=== PATIENT | male | born 1965 | race Caucasian/White ===

== ENCOUNTER 2023-11-08 13:23 | Emergency (ER) | payer OTHER, SELFPAY ==
[2023-11-08 13:28] VITALS: BP 176/100; PULSE 67; O2SAT 100
[2023-11-08] MEDS: Lidocaine/Epinephri/Tetracaine Topical Gel 3 ML (13:40)
--- NOTE | 2023-11-08 13:55 | DI.CT_ITS ---
Exam(s) CT HEAD FACIAL WO EXAM: CT HEAD FACIAL WO CLINICAL HISTORY: fell ,hit nose, r/o fx and bleed. TECHNIQUE: Imaging Protocol: Axial computed tomography images with coronal and sagittal reformatted images were created and reviewed COMPARISON: No exams were available for comparison FINDINGS: CT Head: Ventricles and Extra axial spaces: Normal in size and morphology for the patient's age. Hemorrhage: None. Cerebral parenchyma: Normal. Midline shift: None. Brainstem/Cerebellum: Normal. Calvarium: Normal. Visualized Paranasal sinuses/Mastoids: Mild mucosal thickening of the maxillary sinuses. Minimal muc ous retention in anterior ethmoid air cells. Soft Tissues: Swelling around the nose. Nasal fractures. CT Face: Facial Bones: Bilateral minimally displaced nasal fractures. Sinuses and Mastoids: Mild mucosal thickening of the maxillary sinuses. Mild mucous retention in th e anterior ethmoid air cells. Globes, extraocular muscles, optic nerves and retrobulbar fat: Normal. Upper aerodigestive tract: Normal. Dental: On multiple absent teeth. Lucencies seen around an posterior upper maxillary teeth which marco antonio ear fractured. Bilateral temporomandibular joints: Normal. Soft tissues: Soft tissue swelling around the nose. IMPRESSION: 1. No acute intracranial process. 2. Minimally displaced bilateral nasal fractures. RADIATION DOSE DELIVERED: 1,104.05mGy.cm Total DLP DATA REPOSITORY: All CT scans at this facility are submitted to the National Radiology Data Registry (NRDR) Dose Index Registry (DIR) with the [employer] (ACR). RADIATION OPTIMIZATION: All CT scans at this facility use at least one of these dose optimization te chniques: automated exposure control; mA and/or kV adjustment per patient size (includes targeted exa ms where dose is matched to clinical indication); or iterative reconstruction.
--- NOTE | 2023-11-08 14:14 | ED.GENADUL_ITS ---
Discharge Plan Disposition Patient Disposition: Home Condition: Good Discharge Details Clinical Impression: Fracture of nasal bone, Fall Primary Care Provider: Lito Hernández ED Provider: John Florentino Home Meds and New Rx's Prescriptions: New cephalexin 500 mg capsule 500 mg PO QID 3 Days Qty: 12 0RF Discharge Instructions Instructions: Nasal Fracture (ED) Additional Instructions: At this time you do have a small fracture of your nasal bone, your laceration was sutured. Due to the nature of your fracture we will do a very short course of antibiotics for prevention of bone infection. Please keep the area clean and dry. Monitor closely for any redness, drainage or discharge. Absorbable sutures will come out on their own in 10 to 12 days. If they have not you can gently rub warm soapy water on the area to help them come off. For long-term scar cosmesis, please make sure to avoid any sun to the area for the next year. Apply moisturizer or vitamin E to the area twice daily for the next 12 months for the best chance of wound/scar medication. Please take a daily multivitamin as well as this can help in wound healing. If you notice any worsening of your symptoms, or any new symptoms such as vomiting, diarrhea, fever, chills, shortness of breath, chest pain, numbness, weakness, or fainting , please return immediately to the emergency department for reevaluation. Please follow up with your primary care provider as soon as possible for reassessment and reevaluation. As always, it was a pleasure participating in your medical care today. Referrals: Lito Hernández MD [Primary Care Provider] - [facility] General Date/Time Provider Initiated Documentation: 11/08/23 13:26 . [facility] Narrative: 58-year-old male whose tetanus is up-to-date with no significant past medical history otherwise presents today after a fall. Patient was at work when he tripped on the steps, and fell forward hitting his safety glasses on the ground which pushed up against his nose and caused a cut. He otherwise did not hit his head, he lost no consciousness. He has no pain in his nose currently. He denies vision changes numbness tingling or weakness. He denies any neck pain or chest pain or shortness of breath. He thinks that there was potentially some mild blood that came from the inside of his nose initially. No other complaints at this time. No other modifying factors. Related Data Home Medications Medication Instructions Recorded Confirmed cephalexin 500 mg capsule 500 mg PO QID 3 days #12 caps 11/08/23 Previous Rx's Medication Instructions Recorded cephalexin 500 mg capsule 500 mg PO QID 3 days #12 caps 11/08/23 General Stated Complaint: Laceration OSMIN: 4 Review of Systems All systems reviewed & are unremarkable except as noted in HPI and below Exam Narrative Exam Narrative: 1.Const: Well-nourished, Well-developed, appearing stated age 2.Eyes: PERRL, no conjunctival injection, and symmetrical lids. 3.ENT: There is no evidence of raccoon eyes, giles sign, CSF rhinorrhea, mastoid tenderness, cranial crepitus, hemotympanum, exophthalmos, or hyphema. Patient demonstrates intact dentition with no signs of tooth avulsion or fracture, no signs of jaw deformity, no evidence of a LeFort's fracture, with an intact palate, nose and orbital region. There is no evidence of a nasal septal hematoma. No proptosis. Jaw closes symmetrically. Airway is clear. Patient's nose demonstrates evidence of small excoriation and L-shaped laceration over the proximal bridge. No active bleeding at this time. No active bleeding internally. 4.CVS: +S1/S2, No murmurs or gallops. Peripheral pulses 2+ and equal in all extremities. Brisk capillary refill in all extremities. 5.RESP: Unlabored respiratory effort. Clear to auscultation bilaterally. No wheezes rales or rhonchi 6.GI: Soft, Nontender/Nondistended, No hepatosplenomegaly. No guarding or rebound. 7.MSK: Normocephalic/Atraumatic, Extremities w/o deformity or ttp No cyanosis or clubbing, Normal movement of all extremities 8.Skin: Warm, Dry. No rashes or lesions. 9.Neuro: freedom of information officer II-XII grossly intact. Sensation grossly intact, no focal neurologic deficits. 10.Psych: (AAO) x3. Appropriate mood and affect Course Vital Signs Vital signs: Vital Signs Pulse 67 11/08/23 13:28 Blood Pressure 176/100 H 11/08/23 13:28 Pulse Oximetry 100 11/08/23 13:28 Temperature Source Tympanic 11/08/23 13:28 Pulse 67 11/08/23 13:28 Respiratory Effort Normal 11/08/23 13:31 Blood Pressure 176/100 H 11/08/23 13:28 Blood Pressure Position Sitting 11/08/23 13:28 Pulse Oximetry 100 11/08/23 13:28 Oxygen Delivery Method Room Air 11/08/23 13:28 Oxygen Flow Rate 0 11/08/23 13:28 Pain Level 2 11/08/23 13:28 Procedures Laceration Laceration 1: Site: face Size (cm): 1 Description: linear Depth: simple, single layer Local Anesthetic: Lidocaine 1% and with Epi Amount of anesthesia used (mL): 2 Pre-repair: wound explored, irrigated extensively and deep structures intact Skin layer closed with: other (Chromic Gut) Size (cm): 5-0 Number of sutures: 2 Technique: simple, interrupted Medical Decision Making 58-year-old male whose tetanus is up-to-date with no significant past medical history otherwise presents today after a fall. Patient was at work when he tripped on the steps, and fell forward hitting his safety glasses on the ground which pushed up against his nose and caused a cut. He otherwise did not hit his head, he lost no consciousness. He has no pain in his nose currently. He denies vision changes numbness tingling or weakness. He denies any neck pain or chest pain or shortness of breath. He thinks that there was potentially some mild blood that came from the inside of his nose initially. No other complaints at this time. No other modifying factors. Exam demonstrates well-appearing male, small abrasion/laceration over the bridge of the nose, no active bleeding, no nasal septal hematoma or other abnormality. Due to patient's age and mechanism, will get CT imaging to rule out fracture or bleed in the brain. Will monitor closely, apply let, suture the nose and reassess. 2:[address] scan shows evidence of a minimally displaced bilateral nasal fracture, no other acute process. No other acute intracranial process per radiology. The area was sutured with 2 simple interrupted sutures utilizing chromic gut 5-0. Patient tolerated this well. Area was cleaned. We will give 4 days of antibiotic for ostial infection coverage. Recommend Tylenol as needed for pain. Discussed red flags for which to return. I have extensively reviewed the treatment plan and discharge instructions with the patient and their family. I have addressed all patient concerns at this time. The patient and family was made aware of what symptoms to monitor for that would warrant a return to the emergency department. Discussed the plan with the patient and family, they demonstrate verbal understanding and agreement with our assessment and plan at this time. The documentation in this chart was dictated using [employer] dictation software. Please excuse any dictation errors. FINDINGS: CT Head: Ventricles and Extra axial spaces: Normal in size and morphology for the patient's age. Hemorrhage: None. Cerebral parenchyma: Normal. Midline shift: None. Brainstem/Cerebellum: Normal. Calvarium: Normal. Visualized Paranasal sinuses/Mastoids: Mild mucosal thickening of the maxillary sinuses. Minimal mucous retention in anterior ethmoid air cells. Soft Tissues: Swelling around the nose. Nasal fractures. CT Face: Facial Bones: Bilateral minimally displaced nasal fractures. Sinuses and Mastoids: Mild mucosal thickening of the maxillary sinuses. Mild mucous retention in the anterior ethmoid air cells. Globes, extraocular muscles, optic nerves and retrobulbar fat: Normal. Upper aerodigestive tract: Normal. Dental: On multiple absent teeth. Lucencies seen around an posterior upper maxillary teeth which appear fractured. Bilateral temporomandibular joints: Normal. Soft tissues: Soft tissue swelling around the nose. IMPRESSION: 1. No acute intracranial process. 2. Minimally displaced bilateral nasal fractures. Quality:SDOH Health Related Social Needs: No Data to Display PFSH All Active Problems (Updated 11/08/23 @ 14:30 by John Florentino DO) Fall (Acute) Fracture of nasal bone (Acute) Social History Smoking/Tobacco Use Status: Never Smoking risk assessment performed?: Yes Alcohol Intake: current Alcohol Intake frequency: holidays/special occasions only Drug use: Never Substance use type: does not use Housing: house
[2023-11-08] MEDS: Cephalexin 500 MG CAP, 4 CAPS/BTL PO (14:36)
== END 2023-11-08 14:48 | disposition home or self-care (01) ==
PROVIDERS: Emergency Provider Student in an Organized Health Care Education/Training Program; PCP Family Medicine
DX: S01.21XA Laceration without foreign body of nose, initial encounter (principal); S02.2XXA Fracture of nasal bones, initial encounter for closed fracture; W01.0XXA Fall on same level from slipping, tripping and stumbling without subsequent striking against object, initial encounter; Y93.01 Activity, walking, marching and hiking; Y92.89 Other specified places as the place of occurrence of the external cause; Y99.0 Civilian activity done for income or pay
CPT/HCPCS: 12011; 99284; 70450; 70486

== ENCOUNTER 2024-01-05 02:54 | Outpatient (CLI) | payer OTHER, SELFPAY ==
[2024-01-05 08:57] LABS: Calculated LDL 145 mg/dL (<100); Cholesterol 214 mg/dL (<200); Glucose 107 mg/dL (74-106); HDL Cholesterol 58 mg/dL (40-60); Triglyceride 55 mg/dL (<150)
[2024-01-05 20:37] LABS: PSA, Screening 0.9 ng/mL (<=3.5)
[2024-01-05 21:25] LABS: HIV-1/2 Ag & Ab Screen Negative (Negative)
== END 2024-01-05 02:55 | disposition home or self-care (01) ==
LOC: LBO 02:54
PROVIDERS: PCP Family Medicine; Visit Provider Family Medicine
DX: E78.5 Hyperlipidemia, unspecified (principal); Z12.5 Encounter for screening for malignant neoplasm of prostate; R73.9 Hyperglycemia, unspecified; Z00.00 Encounter for general adult medical examination without abnormal findings
CPT/HCPCS: 36415; 80061; 82947; 84153; 87389

== ENCOUNTER 2025-06-02 08:38 | Day surgery (SDC) | payer MEDICAID, SELFPAY ==
[2025-06-02 08:52] VITALS: BP 143/83; PULSE 58; RESP 16; TEMP 36.2; O2SAT 100
[2025-06-02] MEDS: Lactated Ringers 1,000 ML 80 ML IV (09:03)
--- NOTE | 2025-06-02 09:22 | ANES.PREOP_ITS ---
General Info Date of Service Date Performed: 06/02/25 Height: 5 ft 10.5 in Weight: 75.9 kg Body Mass Index (BMI): 23.6 Surgical Procedure: Operation Date: 06/02/25 09:35 Proposed Procedure Side Surgeon p Colonoscopy Tammy Leung MD Meds Allergies and Home Medications Allergies Allergy/AdvReac Type Severity Reaction Status Date / Time venom-honey bee Allergy Intermediate Swelling/Ed Verified 06/02/25 08:55 gideon Home Medication Medication Instructions Recorded bisacodyl 5 mg tablet,delayed 5 mg PO ONCE Colonoscopy Bowel 05/29/25 release Prep #4 tabs polyethylene glycol 3350 17 238 g PO ONCE #238 grams 1 07/29/24 gram/dose oral powder Current Visit Medications: Current Medications Generic Name Dose Route Start Last Admin Trade Name Freq PRN Reason Stop Dose Admin Ringer's Solution 1,000 mls @ 80 mls/hr 06/02/25 06:00 06/02/25 09:03 IV 06/02/25 23:59 80 mls/hr INFUSION LISSETH Administration IV Miscellaneous Supplies 1 each 06/02/25 06:00 Iv Access IV 06/02/25 23:59 DIRECTED LISSETH Sodium Biphosphate/Sodium Phosphate 133 ml 06/02/25 06:00 Na Phosphate Enema-Adult 133 Ml Btl NV 06/02/25 23:59 DIRECTED PRN Sodium Chloride 0 ml 06/02/25 06:00 Normal Saline Flush 10 Ml Syr IV 06/02/25 23:59 PRN PRN Sodium Chloride 0 ml 06/02/25 06:00 Normal Saline 10 Ml Vial IJ 06/02/25 23:59 DIRECTED PRN Sterile Water 0 ml 06/02/25 06:00 Water,Injection,Sterile 10 Ml Vial IJ 06/02/25 23:59 DIRECTED PRN PFSH Active Problems Active Problems: Problem Status Onset Code Screening for malignant neoplasm of colon declined Acute Z53.20 RLS (restless legs syndrome) Acute G25.81 Surgical History Surgical History History of appendectomy Tobacco Smoking/Tobacco Use Status: Former Tobacco Use Passive smoking exposure: Yes Second hand exposure: Yes Alcohol Alcohol Intake: current Alcohol intake frequency: a few times a month Alcohol ty pe: beer Substance Use Substance use: Occasionally Substance use type: marijuana Vital Signs and Lab Results Vital Signs Most Recent Vital Signs in EMR: Most Recent Vital Signs Temp Pulse Resp BP Pulse Ox 36.2 C L 58 L 16 143/83 H 100 06/02/25 08:52 06/02/25 08:52 06/02/25 08:52 06/02/25 08:52 06/02/25 08:52 Anesthesia Assessment and Plan Anesthesia History Personal History: No History of Anesthesia Complications Family History: No Family History of Anesthesia Complications Exercise Tolerance Exercise Tolerance: Metabolic Equivalents>4 Pertinent Negatives Pertinent Negatives: No Symptoms of GERD, No Major Cardiovascular Symptoms or Complaints and No Major Pulmonary Symptoms or Complaints Cardiac & Pulmonary Exam Cardiac Exam: Normal S1/S2 Heart Sounds Pulmonary Exam: Clear Bilateral Breath Sounds Implantable Cardiac Device Does patient have a Pacemaker or an ICD?: No Airway Exam Known Difficult Airway: No Mallampati Class: 1 Mouth Opening: Normal (> 3cm) Thyromental Distance: Greater than 3 cm Neck Range of Motion: Full ROM Neck Circumference: Normal Teeth Condition: Normal Dentition ASA Classification ASA Score: ASA 2 Emergency Case?: No NPO Status NPO Status: NPO Clears >2 hours, Solids >8 hours Anesthesia Plan Resuscitation Status: Full Code Anesthesia Technique: General Anesthesia Airway Planned: Natural Airway Monitors Used: Standard Monitors Preoperative Comments:: Previous colonoscopy 10 yrs ago at [facility], one polyp Last marijuana use 4 days ago
[2025-06-02 09:28] VITALS: BMI 23.6
--- NOTE | 2025-06-02 10:28 | BOWEL_PTH ---
PATIENT: Chance Reaves LOC: [facility] U#:[id number] AGE/SX: 60/M ROOM: RE06/02/[address]: Tammy Leung MD : 1965 BED: DIS: 06/02/2025 SPEC #: [id number] RECD: 06/02/25 12:07 STATUS: OC RELorena #: [id number] JOSELO: 06/02/25 10:[address]: Tammy Leung DEPT: Surgical Specimen RECD BY: Tammi Santillan ENTERED: 06/02/25 12:07 SP TYPE: Bowel OTHR DR: Lito Hernández MD Tissues: 1 - BIOPSY BOWEL Procedures: GROSS AND MICRO LEVEL 4 Comments: [id number]
--- NOTE | 2025-06-02 10:30 | W.PM.DSUDISC ---
Date of service: 06/02/25 Discharge Plan Disposition Patient Disposition: Home Condition: Stable Discharge Details Reason For Visit: screening colonoscopy Attending Provider: Tammy Leung Primary Care Provider: Lito Hernández Home Meds and New Rx's Prescriptions: Discontinued bisacodyl 5 mg tablet,delayed release (DR/EC) 5 mg PO ONCE Qty: 4 0RF Rx Instructions: Per Colonoscopy bowel prep instructions polyethylene glycol 3350 17 gram/dose powder 238 g PO ONCE Qty: 238 0RF Rx Instructions: For Colonoscopy bowel prep, as directed by office Discharge Instructions Additional Instructions: four tiny polyps seen and removed from the rectum. If any of these are adenoma polyps, you will need to return in 5 years for colonoscopy. If they are all hyperplastic polyps, you will be able to go ten years again until your next colonoscopy. A small blood vessel called an AVM was seen in the colon near where the appendix is attached. It is tiny and not bleeding so I did not cauterize it. No need to worry about this small lesion. If you ever experience colon bleeding, you would need to remember that you have this small AVM and alert your doctor. Otherwise no problems or issues anticipated and no intervention needed. will communicate results of polyp biopsies and timing of next colonoscopy by mail. 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
[2025-06-02 10:35] VITALS: BP 110/70; PULSE 50; RESP 16; TEMP 36; O2SAT 99
--- NOTE | 2025-06-02 10:51 | W.ANESPOSTOP ---
Postoperative Evaluation Date, Time and Location Date Performed: 06/02/25 Time Performed: 10:41 Patient Location: Day Surgery Unit Vital Signs Most Recent Imported Vital Signs: Most Recent Vital Signs Temp Pulse Resp BP Pulse Ox 36 C L 50 L 16 110/70 99 06/02/25 10:35 06/02/25 10:35 06/02/25 10:35 06/02/25 10:35 06/02/25 10:35 Pain Score Most Recent Pain Score: Most Recent Pain Score Pain Level 0 06/02/25 10:35 Assessment Mental Status: Awake (Alert & Oriented to Patient Baseline) Airway and Respiratory Function: Patent airway with normal (patient baseline) respiratory exam Cardiovascular Function: Hemodynamically Stable Hydration Status: Adequately Hydrated Nausea & Vomiting: No Nausea or Vomiting Pain: Pt. Denies Any Pain Peripheral Nerve Block: Patient did not receive a nerve block
[2025-06-02 11:08] VITALS: BP 117/79; PULSE 43; RESP 16; TEMP 36.7; O2SAT 97
--- NOTE | 2025-06-04 08:51 | COLE_ITS ---
Date of service: 06/02/25 Time of Service: 10:40 Colonoscopy Report Date of procedure: 06/02/25 Pre-op diagnosis general: screening for colorectal cancer Post-op diagnosis procedure note: other (mutiple rectum polyps) Procedure: Colonoscopy with cold forceps polypectomy Surgeon: Tammy Leung Anesthesia Type: General:No Airway Estimated blood loss (mL): 2 Pathology: other (1. multiple rectum polyps) Complications: None Disposition: same day Procedure Description: Informed consent was obtained and the patient was taken to the procedure area. The patient was placed in left lateral decubitus position on the procedure t able. Timeout was performed. Anesthesia was induced. A lubricated colonoscope was inserted through the anus and passed to the cecum. The cecum was identified by the ileocecal valve and the appendiceal orifice. The scope was then slowly withdrawn and the colonic and rectal mucosa examined. Cecum with a 4mm AVM visible near the appendiceal orifice. It is nonbleeding. There are no colon lesions, polyps, AVMs. There is no inflammatory change. No diverticulosis was seen. Distal rectum with an area of four polyps, 1-3mm in size, all excised together with cold forceps and sent as one specimen labeled multiple rectum polyps. The scope was retroflexed in the anorectal junction examined. Uncomplicated internal hemorrhoids present. Assessment and plan: Screening for colorectal cancer Cecum AVM rectum polyps Four tiny polyps seen and removed from rectum. If any adenomatous features, next colonoscopy will be due in 5 years. If all are hyperplastic, next colonoscopy due in 10 years. No intervention needed for small AVM in cecum. Return precautions provided in writing regarding what to do if GI bleeding ever occurs. Will notify patient of polyp results by mail.
== END 2025-06-02 11:14 | disposition home or self-care (01) ==
PROVIDERS: PCP Family Medicine; Visit Provider Surgery
PROC: 0DJD8ZZ Inspection of Lower Intestinal Tract, Via Natural or Artificial Opening Endoscopic (ICD-10-PCS; CPT 45378; principal; 2025-06-02 09:30)
DX: Z12.11 Encounter for screening for malignant neoplasm of colon (principal); K62.1 Rectal polyp; K55.20 Angiodysplasia of colon without hemorrhage
CPT/HCPCS: 45380; 88305; J2003; J2704